=== PATIENT | male | born 1970 | race Caucasian/White ===

== ENCOUNTER 2020-09-21 18:52 | Inpatient (IN) | payer OTHER, SELFPAY ==
[2020-09-21 18:52] VITALS: BP 165/104; PULSE 74; RESP 20; TEMP 36.7; O2SAT 100; BMI 29.0
[2020-09-21 19:04] LABS: Add Urine Microscopic? NO
[2020-09-21 19:14] LABS: Bilirubin Urine Neg (Negative); Blood Urine Neg (Negative); Glucose Urine UA Norm (Normal); Ketones Urine Negative (Negative); Leukocyte Esterase Urine Negative (Negative); Nitrate Urine Negative (Negative); Protein Urine Neg (Negative); Urine Appearance Clear (CLEAR); Urine Color Straw (Yellow); Urobilinogen Urine Norm (Negative); pH Urine 6.5 (5-7)
[2020-09-21 19:18] LABS: Basophils # 0.1 10^3/uL (0.0-0.1); Basophils % 0.8 %; Eosinophils # 0.1 10^3/uL (0.0-0.8); Eosinophils % 1.9 %; Hematocrit 54.9 % (42.0-52.0); Hemoglobin 18.6 g/dL (11.7-16.6); Lymphocytes # 2.1 10^3/uL (0.8-4.8); Lymphocytes % 28.2 %; Mean Corpuscular HGB Conc 33.9 g/dL (30.0-36.0); Mean Corpuscular Hemoglobin 30.2 pg (28.0-34.0); Mean Corpuscular Volume 89.1 fL (80-94); Monocytes # 0.4 10^3/uL (0.2-0.9); Monocytes % 4.8 %; Neutrophils % 64.2 %; Nucleated Red Blood Cells % 0 %; Platelet Count 391 10^3/cmm (130-400); Red Blood Count 6.16 10^6/uL (4.1-5.3); Red Cell Distribution Width 12.7 % (12.1-15.1); White Blood Count 7.5 10^3/uL (4.0-10.0)
[2020-09-21 19:18] LABS: Amphetamines Screen Urine Negative (Negative); Barbiturates Screen Urine Negative (Negative); Benzodiazepines Screen Urine Negative (Negative); Cocaine Screen Urine Negative (Negative); Opiate Screen Urine Negative (Negative); PCP Screen Urine Negative (Negative); THC Screen Urine Negative (Negative)
[2020-09-21 19:38] LABS: Alanine Aminotransferase 33 U/L (0-41); Albumin Level 4.6 g/dL (3.5-5.2); Alcohol Level 271 mg/dL (0-10); Alkaline Phosphatase 105 IU/L (40-130); Anion Gap 15.2 (5-19); Aspartate Amino Transferase 27 U/L (0-40); Blood Urea Nitrogen 7 mg/dL (6-20); Calcium 8.9 mg/dL (8.5-10.5); Carbon Dioxide 30 mmol/L (22-29); Chloride 102 mmol/L (98-107); Globulin 3.8 g/dL (1.3-4.6); Glucose 94 mg/dL (65-115); Osmolality Calculated 294 mOsm/kg (285-295); Potassium 4.2 mmol/L (3.5-5.1); Sodium 143 mmol/L (136-145); Total Bilirubin 0.2 mg/dL (0.15-1.2); Total Protein 8.4 g/dL (6.6-8.7)
[2020-09-21 19:46] LABS: Acetaminophen < 5.0 ug/mL (10-30); Creatinine Clr Calc Pharmacy 180.9996; Salicylate < 0.3 mg/dL (3-10)
[2020-09-21] MEDS: nicotine 21 mg Patch 1 PATCH TRANSDERMA (20:28)
[2020-09-21] MEDS: LORazepam 2 mg Tablet PO (20:28)
[2020-09-21 20:30] VITALS: BP 183/88; PULSE 65; RESP 16; TEMP 37; O2SAT 65
--- NOTE | 2020-09-21 22:26 | ED_ITS ---
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 He is complaining of suicidal ideation. He is pretty tearful. He he did not tell me if he had any plan but it is obvious that he is distressed. He endorses alcohol use but denies any drug use. 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 complaint: suicidal ideation History of same: No Relieving factors: none Exacerbating factors: alcohol Context: recent alcohol abuse Review of Systems General: Reports: 10 or more systems reviewed and unremarkable except in HPI and below Const: Denies: fever(s), chills or body aches Eyes: Denies: change in vision or blurry vision ENMT: Denies: throat pain, enlarged tonsils, odynophagia, hoarseness, mouth pain or swelling of lips/tongue Card: Denies: palpitations, irregular heart rhythm, edema or swelling of feet/ankles Resp: Denies: dyspnea, productive cough or non-productive cough GI: Denies: abdominal pain, nausea or vomiting : Denies: flank pain, dysuria, urinary frequency, urinary urgency or urinary hesitancy Musc: Denies: neck pain, back pain or extremity swelling Skin/Breast: Denies: rash, pruritus or erythema Neuro: Denies: headache(s), numbness in extremities or weakness in extremities Endo: Denies: polyuria, polydipsia or tired all the time Physical Exam Const: COMMON NORMALS: no acute distress, average body habitus, patient oriented x3, no limitations, healthy appearing, alert and well nourished HENMT: COMMON NORMALS: normocephalic, atraumatic and moist oral mucous membranes HEAD & SCALP: normocephalic and atraumatic Neck/C-Spine: COMMON NORMALS: no meningeal signs and no JVD Resp: COMMON NORMALS: normal respiratory effort, No retractions, No use of accessory muscles, clear to auscultation bilaterally and percussion normal AUSCULTATION: clear to auscultation bilaterally PERCUSSION: percussion normal Cardio: COMMON NORMALS: no JVD, regular rate, regular rhythm, S1 normal heart sound present, S2 normal heart sound present, No gallops present (Cardio), No clicks present (Cardio), No murmurs present (Cardio), No rub (Cardio) and Peripheral pulses 2+ throughout RATE: regular rate RHYTHM: regular rhythm HEART SOUNDS: S1 normal heart sound present and S2 normal heart sound present PERIPHERAL PULSES: Peripheral pulses 2+ throughout GI: COMMON NORMALS: Normal to inspection, nondistended, normoactive bowel sounds present, Soft to palpation, non-tender, No hepatosplenomegaly present, no masses and no bruits PALPATION: Yes Soft to palpation and Yes No hepatosplenomegaly present Extremity: COMMON NORMALS: normal to inspection, full ROM, capillary refill normal, no calf tenderness and no pedal edema Neuro: COMMON NORMALS: patient oriented x3 SENSORIUM/ORIENTATION: Yes alert MENINGEAL SIGNS: Yes no meningeal signs Skin: COMMON NORMALS: no rashes or lesions noted, no wounds, turgor normal, no jaundice, no petechiae and no mottling GENERAL SKIN EXAM: no rashes or lesi ons noted and turgor normal MDM - Psych MDM Narrative: Medical decision making narrative: 50-year-old male who presents to the emergency department with suicidal ideation. He is medically cleared and admitted to the neuropsychiatric unit for further evaluation and management. He is voluntary and wants help. Medical Records: Attestation: I reviewed the patient's medical records. Lab Data: Attestation: I reviewed the patient's lab results. Labs: Lab Results 09/21/20 09/21/20 09/21/20 Range/Units 18:55 18:55 19:14 WBC 7.5 (4.0-10.0) 10^3/ uL RBC 6.16 H (4.1-5.3) 10^6/u L Hgb 18.6 H (11.7-16.6) g/dL Hct 54.9 H (42.0-52.0) % MCV 89.1 (80-94) fL MCH 30.2 (28.0-34.0) pg MCHC 33.9 (30.0-36.0) g/dL RDW 12.7 (12.1-15.1) % Plt Count 391 (130-400) 10^3/c mm MPV 9.0 (7.4-10.4) fL Neut % (Auto) 64.2 % Lymph % (Auto) 28.2 % Parmer % (Auto) 4.8 % Eos % (Auto) 1.9 % Baso % (Auto) 0.8 % Neut # (Auto) 4.80 (1.8-7.7) 10^3/u L Lymph # (Auto) 2.1 (0.8-4.8) 10^3/u L Parmer # (Auto) 0.4 (0.2-0.9) 10^3/u L Eos # (Auto) 0.1 (0.0-0.8) 10^3/u L Baso # (Auto) 0.1 (0.0-0.1) 10^3/u L Nucleated RBC % (a uto) 0 % Nucleated RBCs # 0.0 /100WBC Sodium (136-145) mmol/L Potassium (3.5-5.1) mmol/L Chloride (98-107) mmol/L Carbon Dioxide (22-29) mmol/L Anion Gap (5-19) BUN (6-20) mg/dL Creatinine (0.7-1.2) mg/dL GFR Calculation (90-130) mL/min Glucose (65-115) mg/dL Calculated Osmolal ity (285-295) mOsm/k g Calcium (8.5-10.5) mg/dL Total Bilirubin (0.15-1.2) mg/dL AST (0-40) U/L ALT (0-41) U/L Alkaline Phosphata se (40-130) IU/L Total Protein (6.6-8.7) g/dL Albumin (3.5-5.2) g/dL Globulin (1.3-4.6) g/dL Urine Color Straw (Yellow) Urine Appearance Clear (CLEAR) Urine pH 6.5 (5-7) Ur Specific Gravit y 1.000 L (1.005-1.030) Urine Protein Neg (Negative) Urine Glucose (UA) Norm (Normal) Urine Ketones Negative (Negative) Urine Blood Neg (Negative) Urine Nitrate Negative (Negative) Urine Bilirubin Neg (Negative) Urine Urobilinogen Norm (Negative) mg/dL Ur Leukocyte Zahraa ase Negative (Negative) Salicylates (3-10) mg/dL Urine Opiates Scre en Negative (Negative) ng/mL Acetaminophen (10-30) ug/mL Ur Barbiturates Sc reen Negative (Negative) ng/mL Ur Phencyclidine S crn Negative (Negative) ng/mL Ur Amphetamines Sc reen Negative (Negative) ng/mL U Benzodiazepines Scrn Negative (Negative) ng/mL Urine Cocaine Scre en Negative (Negative) ng/mL U Marijuana (THC) Screen Negative (Negative) ng/mL Ethyl Alcohol (0-10) mg/dL 09/21/20 Range/Units 19:14 WBC (4.0-10.0) 10^3/ uL RBC (4.1-5.3) 10^6/u L Hgb (11.7-16.6) g/dL Hct (42.0-52.0) % MCV (80-94) fL MCH (28.0-34.0) pg MCHC (30.0-36.0) g/dL RDW (12.1-15.1) % Plt Count (130-400) 10^3/c mm MPV (7.4-10.4) fL Neut % (Auto) % Lymph % (Auto) % Parmer % (Auto) % Eos % (Auto) % Baso % (Auto) % Neut # (Auto) (1.8-7.7) 10^3/u L Lymph # (Auto) (0.8-4.8) 10^3/u L Parmer # (Auto) (0.2-0.9) 10^3/u L Eos # (Auto) (0.0-0.8) 10^3/u L Baso # (Auto) (0.0-0.1) 10^3/u L Nucleated RBC % (a uto) % Nucleated RBCs # /100WBC Sodium 143 (136-145) mmol/L Potassium 4.2 (3.5-5.1) mmol/L Chloride 102 (98-107) mmol/L Carbon Dioxide 30 H (22-29) mmol/L Anion Gap 15.2 (5-19) BUN 7 (6-20) mg/dL Creatinine 0.6 L (0.7-1.2) mg/dL GFR Calculation 142.0 H (90-130) mL/min Glucose 94 (65-115) mg/dL Calculated Osmolal ity 294 (285-295) mOsm/k g Calcium 8.9 (8.5-10.5) mg/dL Total Bilirubin 0.2 (0.15-1.2) mg/dL AST 27 (0-40) U/L ALT 33 (0-41) U/L Alkaline Phosphata se 105 (40-130) IU/L Total Protein 8.4 (6.6-8.7) g/dL Albumin 4.6 (3.5-5.2) g/dL Globulin 3.8 (1.3-4.6) g/dL Urine Color (Yellow) Urine Appearance (CLEAR) Urine pH (5-7) Ur Specific Gravit y (1.005-1.030) Urine Protein (Negative) Urine Glucose (UA) (Normal) Urine Ketones (Negative) Urine Blood (Negative) Urine Nitrate (Negative) Urine Bilirubin (Negative) Urine Urobilinogen (Negative) mg/dL Ur Leukocyte Zahraa ase (Negative) Salicylates < 0.3 L (3-10) mg/dL Urine Opiates Scre en (Negative) ng/mL Acetaminophen < 5.0 L (10-30) ug/mL Ur Barbiturates Sc reen (Negative) ng/mL Ur Phencyclidine S crn (Negative) ng/mL Ur Amphetamines Sc reen (Negative) ng/mL U Benzodiazepines Scrn (Negative) ng/mL Urine Cocaine Scre en (Negative) ng/mL U Marijuana (THC) Screen (Negative) ng/mL Ethyl Alcohol 271 H (0-10) mg/dL Discharge Plan Discharge Patient Disposition: Admitted As Inpatient Admit Provider: Pete De Leon Clinical Impression: Suicidal ideation Condition: Stable Coding Level of Care Code ED Ski Tow Operator for Jadeg Fwd Exam Comprehensive
[2020-09-21 22:59] LABS: Alcohol Level 178 mg/dL (0-10)
[2020-09-22] MEDS: LORazepam 2 mg Tablet PO (03:19)
[2020-09-22 06:00] VITALS: BP 186/112; PULSE 76; RESP 19; TEMP 36.7; O2SAT 97
[2020-09-22] MEDS: thiamine 100 mg Tablet PO (08:38)
[2020-09-22] MEDS: multivitamin therapeutic Tablet 1 TAB PO (08:38)
[2020-09-22] MEDS: folic acid 1 mg Tablet PO (08:38)
[2020-09-22] MEDS: nicotine 2 mg Gum BUCCAL (12:19)
[2020-09-22 14:00] VITALS: BP 166/108; PULSE 67; RESP 18; TEMP 36.1; O2SAT 93
--- NOTE | 2020-09-22 15:11 | P.HP_ITS ---
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 He is complaining of suicidal ideation. He is pretty tearful. He he did not tell me if he had any plan but it is obvious that he is distressed. He endorses alcohol use but denies any drug use. 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 complaint: suicidal ideation History of same: No Relieving factors: none Exacerbating factors: alcohol Context: recent alcohol abuse. He was admitted to the neuropsychiatric unit for definitive treatment of those issues. He presents today reporting that this is his first psychiatric hospitalization. He reports he did get treatment as an adolescent for depression. He reports he has had medications [facility] He denies any histories of suicide attempts he denies any significant alcohol withdrawal symptoms. Today, he has alcohol often daily, he denies marijuana use he denies cocaine methamphetamine or any other illicit drug use. He has never been to a rehab, and he has had a DUI. He reports that he came into the emergency room because he was feeling cold and despondent his drinking had increased. He retired with 20 years of service in the [employer] he reports he recently bought a 17 acre cabin in [place]. He is not interested in taking any psychiatric medication outside of the trazodone and at this point would prefer being discharged as soon as possible and was even resistant to make it with the [facility] which already is aware of him because they have called us. Psychiatric history: As above. Substance abuse history: As above. Family history: He reports some alcohol and drug addiction on his father side but denies any other mental health or addiction issues on either side of his family denies any knowledge of suicide attempts or completions. Developmental history: He denies any issues with his mom's with him or and delivery. He learned to walk and talk and met his developmental milestones on time. He denied having any speech therapy, learning support, emotional support or special education classes once he went off to school. Psychosocial history: He reports his parents were together when he was born and that he is the only product of that union. Neither of his parents had any children otherwise. He reports his childhood was only denied the emotional, physical or sexual abuse. He graduated from high school and the only additional training he had was in the [employer]. He is a heterosexual and his longest relationship 6 to 7 years. He has been 1 time and once, he has 3 children all daughters ages 19- 26, he was in the [employer] for 20 years, and he endorses having a Zoroastrian jesu but not necessarily practicing intensely. His longest employment was the 20 years in the and he currently lives alone in the cabin above described. Legal history: He reports that he has been in group home a few times a longest time was 19 weeks. Medical history: He denies any significant issues. Meds NPU Home Medications Medication Instructions Recorded Confirmed Last Taken Type trazodone 200 mg PO BEDTIME 09/22/20 09/22/20 09/21/20 History Allergies Allergy/AdvReac Type Severity Reaction Status Date / Time procaine [From Novocain] Allergy Unknown Verified 09/21/20 20:31 Mental Status Exam MSE Comments: This is an overweight white male with hospital scrubs on with adequate grooming and eye contact. No abnormal movements psychomotor retardation that is resolving. Cooperative with exam in no acute distress. Speech was normal rate and volume. Mood described as good affect congruent. Thought process organized. Thought content: Patient denied any suicidal or homicidal ideation, there were no delusions reported or noted, he denied any auditory or visual hallucination. Attention and concentration were intact and memory appeared reliable but none were formally tested. He is alert and oriented x3. Insight and judgment appear fair impulse control appears limited. Vitals/I&O/Wt Last Vital Signs Temp 97.0 F L 09/22/20 20:43 Pulse 66 09/22/20 20:43 Resp 18 09/22/20 20:43 BP 155/81 09/22/20 20:43 Pulse Ox 96 09/22/20 20:43 Weight last 48 hrs Weight 99.79 kg Data NPU : 09/21/20 19:14 09/21/20 19:14 A&P Assessment and plan (1) PTSD (post-traumatic stress disorder): Status: Acute (2) Alcohol use: Status: Acute (3) Alcohol intoxication: Status: Acute (4) Suicidal ideation: Status: Acute Additional A&P Information This is a 50-year-old white male with a long history of PTSD, active addiction and presenting to the ED with suicidal ideation who presents reporting that he is doing fine now and not interested in any treatment. 1. Continue current medication. 2. Continue every 15 minute checks for safety. 3. Encourage individual, group and milieu therapies. 4. Encourage sober living treatment after discharge at the highest level of care to which she is willing to commit. 5. [facility] 6. We will monitor overnight and likely discharge tomorrow if he is having the same position on treatment. He is a voluntary patient. Involuntary Hold Information 96 Hour Hold: 96 Hour Involuntary Admission: No Attestations NPU Medical Necessity Statement*: Inpatient hospitalization is medically necessary and the clinically appropriate intervention at this time. We will monitor medications and make changes as indicated. We will likely monitor for another 24 hours and if he is striking the same tone without any clear concerns we will discharge. Coding Level of Care Code Acute Book Sewing Machine Operator for Jhoana Buckley Diagnoses PTSD (post-traumatic stress disorder) F43.10 Alcohol use Z72.89 Alcohol intoxication F10.929 Suicidal ideation R45.851
[2020-09-22 16:25] VITALS: BP 166/108; PULSE 67; RESP 18; TEMP 36.1; O2SAT 93
[2020-09-22 20:43] VITALS: BP 155/81; PULSE 66; RESP 18; TEMP 36.1; O2SAT 96
--- NOTE | 2020-09-22 22:10 | PC.NURSE ---
PM ASSESSMENT V/S ARE WNL WITH B/P EXCEPTION OF 155/81. HEART/LUNG SOUNDS ARE WNL . PT DENIES PAIN, DENIES SI/HI, DENIES AH/VH, PT WANTS TO REST.
[2020-09-23] MEDS: trazodone 50 mg Tablet PO (01:49)
[2020-09-23] MEDS: OLANZapine 5 mg ODT PO (01:49)
--- NOTE | 2020-09-23 01:52 | PC.NURSE ---
zyprexa zydis/trazodone 5mg zyprexa zydis given for intrusive racing thoughts Trazodone 50mg po given for insomnia will continue to monitor pt
--- NOTE | 2020-09-23 01:54 | PC.NURSE ---
Ciwa 2- no medication given for withdrawl at this time
--- NOTE | 2020-09-23 02:56 | PC.NURSE ---
PRN followup pt sleeping in his room at this time. no signs of distress noted. patient is calm and quiet, eyes closed, respiration normal.
[2020-09-23 06:00] VITALS: BP 141/83; PULSE 71; RESP 18; TEMP 36.7; O2SAT 95
[2020-09-23] MEDS: multivitamin therapeutic Tablet 1 TAB PO (08:46)
[2020-09-23] MEDS: folic acid 1 mg Tablet PO (08:46)
[2020-09-23] MEDS: thiamine 100 mg Tablet PO (08:46)
[2020-09-23 10:27] VITALS: BP 141/83; PULSE 71; RESP 18; TEMP 36.7; O2SAT 95
[2020-09-23] MEDS: nicotine 21 mg Patch 1 PATCH TRANSDERMA (10:51)
--- NOTE | 2020-09-23 11:20 | P.DS_ITS ---
Diagnoses at Discharge Discharge Diagnosis (1) PTSD (post-traumatic stress disorder): Status: Acute (2) Alcohol use: Status: Acute (3) Alcohol intoxication: Status: Acute (4) Suicidal ideation: Status: Resolved Reason for Visit Reason for Visit: SI/ ETOH Brief History: History of Present Illness Deshaun Machuca is a 50 year old male who presented to the emergency department with the following report: Chief Complaint: Psychiatric Symptoms Stated Complaint: SI/ ETOH Time Seen by Provider: 09/21/20 18:54 Source: patient Mode of arrival: ambulatory Limitations: no limitations History of Present Illness: HPI Narrative: 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 He is complaining of suicidal ideation. He is pretty tearful. He he did not tell me if he had any plan but it is obvious that he is distressed. He endorses alcohol use but denies any drug use. 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 MD complaint: suicidal ideation History of same: No Relieving factors: none Exacerbating factors: alcohol Context: recent alcohol abuse. He was admitted to the neuropsychiatric unit for definitive treatment of those issues. He presents today reporting that this is his first psychiatric hospitalization. He reports he did get treatment as an adolescent for depression. He reports he has had medications specifically [facility] He denies any histories of suicide attempts he denies any significant alcohol withdrawal symptoms. Today, he has alcohol often daily, he denies marijuana use he denies cocaine methamphetamine or any other illicit drug use. He has never been to a rehab, and he has had a DUI. He reports that he came into the emergency room because he was feeling cold and despondent his drinking had increased. He retired with 20 years of service in the [employer] he reports he recently bought a 17 [address] cabin in [place]. He is not interested in taking any psychiatric medication outside of the trazodone and at this point would prefer being discharged as soon as possible and was even resistant to make it with the [facility] which already is aware of him because they have called us. Psychiatric history: As above. Substance abuse history: As above. Family history: He reports some alcohol and drug addiction on his father side but denies any other mental health or addiction issues on either side of his family denies any knowledge of suicide attempts or completions. Developmental history: He denies any issues with his mom's with him or and delivery. He learned to walk and talk and met his developmental milestones on time. He denied having any speech therapy, learning support, emotional support or special education classes once he went off to school. Psychosocial history: He reports his parents were together when he was born and that he is the only product of that union. Neither of his parents had any children otherwise. He reports his childhood was only denied the emotional, physical or sexual abuse. He graduated from high school and the only additional training he had was in the [employer]. He is a heterosexual and his longest relationship 6 to 7 years. He has been 1 time and once, he has 3 children all daughters ages 19- 26, he was in the [employer] for 20 years, and he endorses having a Nondenominational jesu but not necessarily practicing intensely. His longest employment was the 20 years in the and he currently lives alone in the cabin above described. Legal history: He reports that he has been in group home a few times a longest time was 19 weeks. Medical history: He denies any significant issues. Hospital Course Hospital Course Deshaun presented to the emergency department with depression, alcohol use and suicidal ideation, so he was admitted to the Neuropsychiatric unit for definitive treatment of those issues. He slowly acclimated to the individual, group and milieu therapies. He was not interested in additional treatment wants his intoxication/withdrawal from alcohol was resolved. He was monitored for 24 hours additionally to ensure safety. He was able to contract for safety prior to discharge.During the hospitalization, patient had routine laboratory studies which were within normal limits except for few outliers. Additionally there was a general medical evaluation which was also within normal limits and revealed no new acute processes. Discharge Summary: At the time of discharge, he was absent lethality and psychosis. Mood and anxiety were well managed. Patient endorsed a plan to avoid all drugs of abuse and consider the aftercare recommendations of the treatment team. Patient was evaluated and deemed to be absent credible lethality, and was not interested in additional care so had achieved the maximum benefit from an inpatient hospitalization, so was discharged. Involuntary Hold Information 96 Hour Hold: 96 Hour Involuntary Admission: No Mental Status Exam MSE Comments: This is an overweight white male with hospital scrubs on with adequate grooming and eye contact. No abnormal movements except psychomotor retardation that is resolving. Cooperative with exam in no acute distress. Speech was normal rate and volume. Mood described as good, affect congruent. Thought process organized. Thought content: Patient denied any suicidal or homicidal ideation, there were no delusions reported or noted, he denied any auditory or visual hallucination. Attention and concentration were intact and memory appeared reliable but none were formally tested. He is alert and oriented x3. Insight and judgment appear fair impulse control appears limited. Discharge Data Vitals: Last Vital Signs Temp 98.1 F 09/23/20 10:27 Pulse 71 09/23/20 10:27 Resp 18 09/23/20 10:27 BP 141/83 09/23/20 10:27 Pulse Ox 95 09/23/20 10:27 Discharge Plan Discharge Patient Disposition: Home Condition: Stable Prescriptions: New Vitamin B-1 (mononitrate) 100 mg Tablet 100 mg PO DAILY 30 Days Qty: 30 RF: 1 Continued trazodone 100 mg Tablet 200 mg PO BEDTIME 30 Days Qty: 60 RF: 1 No Action aspirin 81 mg tablet,chewable 81 mg PO DAILY Qty: 30 RF: 0 Discharge Orders: Discharge Order (Routine); Ordered 09/23/20 Ordered By: Pete De Leon Referrals: [facility] ([place] [Other] [facility] ([place] [Other] [facility] [Outside] (Resource for outpatient mental health services) [facility] [Outside] (Resource for inpatient or outpatient substance abuse treatment) Discharge Diet: Regular Discharge Activity: Resume usual activity Patient Instructions: Trazodone (By mouth) Discharge Attestations NPU Time Spent in Discharge Care*: less than 30 min Specific Discharge Activities: Specific discharge activities: educating patient, discussing with insurance case manager/social workers/dc planners, documenting/other paperwork and evaluating patient/reviewing data Coding Level of Care Code Acute Inspector Assembly for [facility] Fwd Diagnoses PTSD (post-traumatic stress disorder) F43.10 Alcohol use Z72.89 Alcohol intoxication F10.929 Suicidal ideation R45.851
== END 2020-09-23 12:12 | disposition home or self-care (01) | DRG 881 ==
LOC: ER 20:06 → NP 20:09
PROVIDERS: Admitting Provider Psychiatry & Neurology Psychiatry; Emergency Provider Family Medicine; Visit Provider Psychiatry & Neurology Psychiatry
DX: F32.9 Major depressive disorder, single episode, unspecified (principal); R45.851 Suicidal ideations; F10.229 Alcohol dependence with intoxication, unspecified; F43.10 Post-traumatic stress disorder, unspecified; Z81.1 Family history of alcohol abuse and dependence
CPT/HCPCS: 12345; 36415; 80053; 80306; 80307; 81003; 85025; 96372; 99284; J3411

== ENCOUNTER 2020-10-02 19:37 | Emergency (ER) | payer OTHER, SELFPAY ==
[2020-10-02 19:40] VITALS: BP 159/93; PULSE 82; RESP 18; TEMP 36.8; O2SAT 98; BMI 32.3
--- NOTE | 2020-10-03 00:20 | CTR_ITS ---
PROCEDURE INFORMATION: Exam: CT Head Without Contrast Exam date and time: 10/03/2020 12:21 AM Age: 50 years old Clinical indication: Speech disturbance; Aphasia; Patient HX: Transient asphasia; Additional info: Word difficulties recent onset TECHNIQUE: Imaging protocol: Computed tomography of the head without contrast. Radiation optimization: All CT scans at this facility use at least one of these dose optimization techniques: automated exposure control; mA and/or kV adjustment per patient size (includes targeted exams where dose is matched to clinical indication); or iterative reconstruction. COMPARISON: No relevant prior studies available. RADIATION DOSE METRICS: Total DLP (mGy-cm): 888.4 FINDINGS: Brain: There is subtle hypoattenuation seen within the corpus callosum on the left posteriorly, findings that may represent an acute infarction. Possibilities including demyelinating disease is cannot be excluded. Follow-up evaluation with pre and post gadolinium MRI imaging is suggested. Cerebral ventricles: No ventriculomegaly. Bones/joints: Unremarkable. No acute fracture. Paranasal sinuses: Visualized sinuses are unremarkable. No fluid levels. Mastoid air cells: Visualized mastoid air cells are well aerated. Soft tissues: Unremarkable. CT/CT head wo con* [id number] IMPRESSION: There is focal hypoattenuation seen within the corpus callosum posteriorly on the left, findings that could represent acute infarction although other possibilities including demyelinating disease is cannot be excluded. Further evaluation with pre and post gadolinium MRI imaging and diffusion-weighted imaging is suggested. Radiation Dose CTDIVOL = (mGy): DLP = 888.4 (mGy-cm)
--- NOTE | 2020-10-03 00:20 | ED_ITS ---
HPI - General Adult General: Chief complaint: General Medical Stated complaint: speech issues Time Seen by Provider: 10/03/20 00:14 History of Present Illness: HPI narrative: Patient went on a alcohol blakely for about 2 weeks drinking about 1/5 of liquor every 3 days. Was seen here in the hospital. Patient's quit drinking here a few days ago had 1 beer today. But he said the last few days he has had problems with word finding words getting words out and his head did not feel right. Thinks he may also have sleep apnea. Intoxicated friend said he had apneic spells lasting from 30 to 45 seconds. MD complaint: Word finding difficulties Onset (ago): week(s) Associated symptoms: Deny chest pain, dyspnea, headache(s), nausea, rash or vomi ting Review of Systems Const: Denies: fever(s), chills or body aches Eyes: Denies: change in vision or blurry vision ENMT: Denies: throat pain or nasal congestion Card: Denies: chest pain or dyspnea on exertion Resp: Denies: dyspnea, productive cough or non-productive cough GI: Denies: abdominal pain, nausea or vomiting : Denies: difficulty urinating Musc: Denies: extremity pain Skin/Breast: Denies: rash Neuro: Reports: other (Says he said a hard time finding words. Stuttering a lot.); Denies: headache(s) Psych: Reports: other (Recent alcohol intoxication stay intoxicated for about 2 weeks. Seen here ); Denies: anxiety or depression Oscar/Lymph: Denies: easy bruising Physical Exam Const: COMMON NORMALS: no acute distress, average body habitus and patient oriented x3 HENMT: COMMON NORMALS: normocephalic HEAD & SCALP: normal to inspection and normocephalic FACE & SINUS: normal facial exam Eye: COMMON NORMALS: conjunctivae normal GENERAL EYE: appearance normal, both eyes and all related structures CONJUNCTIVA: Yes conjunctivae normal Neck/C-Spine: COMMON NORMALS: no JVD Chest: COMMONS NORMALS: normal inspection of the chest Resp: COMMON NORMALS: normal respiratory effort and clear to auscultation bilaterally AUSCULTATION: clear to auscultation bilaterally Cardio: COMMON NORMALS: no JVD, regular rate and regular rhythm RATE: regular rate RHYTHM: regular rhythm GI: COMMON NORMALS: Normal to inspection, nondistended, normoactive bowel sounds present Extremity: COMMON NORMALS: normal to inspection and full ROM Neuro: COMMON NORMALS: patient oriented x3, moves all extremities, no focal motor deficits and no sensory deficits noted Course Vital Signs: Vital signs: Vital Signs Temperature 98.2 F 10/02/20 19:40 Pulse Rate 82 10/02/20 19:40 Respiratory Rate 18 10/02/20 19:40 Blood Pressure 159/93 10/02/20 19:40 Pulse Oximetry 98 10/02/20 19:40 MDM - General Adult MDM Narrative: Medical decision making narrative: I spoke with Dr. Albert shared radiology results with him he recommend to call the neurologist. I spoke with Dr. Chinchilla and Dr. Chinchilla recommended following through with what the radiologist said and and an MRI cervical and intracranial and have patient with a 2-week follow-up at neurology with her. Instructed the patient should be on a baby aspirin daily also. Patient can return to the ER if worsening symptoms patient was advised away from alcohol.. Discharge Plan Discharge Prescriptions: No Action Vitamin B-1 (mononitrate) 100 mg Tablet 100 mg PO DAILY 30 Days Qty: 30 RF: 1 trazodone 100 mg Tablet 200 mg PO BEDTIME 30 Days Qty: 60 RF: 1 Coding Level of Care Code ED Nailer Machine for Jadeg Fwd Exam Comprehensive
[2020-10-03 01:42] VITALS: PULSE 72; O2SAT 97
--- NOTE | 2020-10-03 09:59 | DCPLANNER ---
manager of training had message to schedule a follow up appointment for patient with Dr. Chinchilla and was left an outpatient order for an MRI/MRA. manager of training called the office of Dr. Chinchilla, to speak with Akash Agarwal, international coordinator. manager of training was unable to speak with Akash, a voicemail was left with patients information, that patient needed a follow up appointment. manager of training faxed outpatient order to centralized scheduling. Patient has [facility] insurance, case picker emailed patients information to November, with [facility], for the authorization process to be started.
--- NOTE | 2020-10-14 08:01 | DCPLANNER ---
Patient has a follow up appointment scheduled for Tuesday, October 27, 2020 at 10:[address] Chinchilla. Clinic will call patient with appointment information.
--- NOTE | 2020-10-29 15:04 | DCPLANNER ---
Patient had a follow up appointment scheduled for 10.27.20 with - patient did not attend appointment. Patient has an MRI / MRA pending with insurance before it can be scheduled.
== END 2020-10-03 01:42 | disposition home or self-care (01) ==
PROVIDERS: Emergency Provider Nurse Practitioner Family
DX: R41.0 Disorientation, unspecified (principal)
CPT/HCPCS: 70450; 99283

== ENCOUNTER 2020-12-25 18:39 | Emergency (ER) | payer OTHER, SELFPAY ==
[2020-12-25 18:54] VITALS: BP 192/105; PULSE 87; RESP 18; O2SAT 93; BMI 30.9
[2020-12-25 20:13] LABS: Basophils # 0.1 10^3/uL (0.0-0.1); Eosinophils # 0.1 10^3/uL (0.0-0.8); Hematocrit 51.2 % (42.0-52.0); Hemoglobin 17.6 g/dL (11.7-16.6); Lymphocytes # 2.3 10^3/uL (0.8-4.8); Lymphocytes % 33.2 %; Mean Corpuscular HGB Conc 34.4 g/dL (30.0-36.0); Mean Corpuscular Hemoglobin 29.9 pg (28.0-34.0); Mean Corpuscular Volume 87.1 fL (80-94); Mean Platelet Volume 9.2 fL (7.4-10.4); Monocytes # 0.8 10^3/uL (0.2-0.9); Monocytes % 11.5 %; Neutrophils # 3.69 10^3/uL (1.8-7.7); Neutrophils % 53.2 %; Nucleated Red Blood Cells % 0 %; Platelet Count 264 10^3/cmm (130-400); Red Blood Count 5.88 10^6/uL (4.1-5.3); Red Cell Distribution Width 13.2 % (12.1-15.1)
[2020-12-25 20:21] LABS: Alanine Aminotransferase 37 U/L (0-41); Alcohol Level 215 mg/dL (0-10); Alkaline Phosphatase 100 IU/L (40-130); Anion Gap 23.4 (5-19); Aspartate Amino Transferase 39 U/L (0-40); Blood Urea Nitrogen 10 mg/dL (6-20); Calcium 8.6 mg/dL (8.5-10.5); Carbon Dioxide 22 mmol/L (22-29); Chloride 93 mmol/L (98-107); Globulin 3.7 g/dL (1.3-4.6); Glomerular Filtration Rate 118.9 mL/min (90-130); Glucose 84 mg/dL (65-115); Osmolality Calculated 278 mOsm/kg (285-295); Potassium 3.4 mmol/L (3.5-5.1); Sodium 135 mmol/L (136-145); Total Bilirubin 0.5 mg/dL (0.15-1.2); Total Protein 8.7 g/dL (6.6-8.7)
[2020-12-25 20:22] LABS: Acetaminophen < 5.0 ug/mL (10-30); Salicylate < 0.3 mg/dL (3-10)
[2020-12-25 21:07] VITALS: BP 176/100; PULSE 87; RESP 18; O2SAT 97
--- NOTE | 2020-12-25 21:13 | ECG_ITS ---
[facility] Test Date: 2020-12-25 Pat Name: Deshaun Machuca Department: Room: Gender: Male Portfolio Director: : 1970 Requested By: Leigh Mckeon Order Number: [id number] Lara MD: Steve Ordonez M.D. Measurements Intervals [place] Rate: 74 P: 29 GA: 189 QRS: 52 QRSD: 106 T: 54 QT: 410 QTc: 456 Interpretive Statements SINUS RHYTHM INCOMPLETE RIGHT BUNDLE BRANCH BLOCK [90+ ms QRS DURATION, TERMINAL R IN V1/V2, 40+ ms S IN I/aVL/V4/V5/V6] SEPTAL MYOCARDIAL INFARCTION , PROBABLY OLD [40+ ms Q WAVE IN V1/V2] No previous ECG available for comparison Electronically Signed On 12-26-2020 21:55:21 CDT by Steve Ordonez M.D. [id number]
[2020-12-25] MEDS: LORazepam 2 mg/mL INJ 1 mL IVP (21:30)
[2020-12-25 21:31] VITALS: PULSE 80; RESP 16; O2SAT 97
[2020-12-25 21:46] LABS: Troponin(5th) Baseline 8 ng/L (0-15)
--- NOTE | 2020-12-25 21:48 | PC.NURSE ---
patient ambulated to bathroom with clean catch urine kit.
[2020-12-25 22:04] LABS: Troponin 5 2HR 9.13 ng/L (0-15); Troponin 5 2HR Delta 1.13 ABS# (0-10)
[2020-12-25 22:13] LABS: Amphetamines Screen Urine Negative (Negative); Barbiturates Screen Urine Negative (Negative); Benzodiazepines Screen Urine Negative (Negative); Cocaine Screen Urine Negative (Negative); Opiate Screen Urine Negative (Negative); PCP Screen Urine Negative (Negative); THC Screen Urine Negative (Negative)
--- NOTE | 2020-12-25 22:18 | ED_ITS ---
HPI - Alcohol General: Chief Complaint: Alcohol Stated Complaint: needs detox from alcohol Time Seen by Provider: 12/25/20 20:50 Source: patient Mode of arrival: ambulatory Limitations: no limitations History of Present Illness: HPI narrative: 50-year-old male who is a chronic alcoholic states that he is having some anxiety today and states he just been drinking too much and would like detox. States that he has been drinking today as well. He denies any suicidal homicidal thoughts. He has no other complaints at this time. Denies any worsening proving factors. Associated symptoms: Deny abdominal pain, depression, nausea or vomiting Review of Systems Const: Denies: fever(s), chills, body aches or change in appetite Eyes: Denies: blurry vision or eye discomfort ENMT: Denies: throat pain or dental pain Card: Reports: chest pain Resp: Denies: dyspnea GI: Denies: abdominal pain, nausea, vomiting or diarrhea : Denies: dysuria Musc: Denies: neck pain or back pain Skin/Breast: Denies: rash Neuro: Denies: headache(s) Psych: Denies: depression Oscar/Lymph: Denies: easy bruising All/Imm: Denies: urticaria Physical Exam Const: COMMON NORMALS: no acute distress, patient oriented x3 and healthy appearing HENMT: COMMON NORMALS: normocephalic and atraumatic HEAD & SCALP: normocephalic and atraumatic Eye: COMMON NORMALS: Equal, round and reactive pupils present and EOMs intact bilaterally PUPIL: Yes Equal, round and reactive pupils present Neck/C-Spine: COMMON NORMALS: full ROM and supple Chest: COMMONS NORMALS: normal inspection of the chest and normal palpation of entire chest wall Resp: COMMON NORMALS: normal respiratory effort, No retractions, No use of accessory muscles and clear to auscultation bilaterally AUSCULTATION: clear to auscultation bilaterally Cardio: COMMON NORMALS: regular rate, regular rhythm and No murmurs present (Cardio) RATE: regular rate RHYTHM: regular rhythm GI: COMMON NORMALS: Normal to inspection, nondistended, normoactive bowel sounds present, Soft to palpation, non-tender and no masses PALPATION: Yes Soft to palpation Extremity: COMMON NORMALS: normal to inspection and full ROM Neuro: COMMON NORMALS: patient oriented x3, moves all extremities and no focal motor deficits Psych: COMMON NORMALS: mental status grossly normal, Normal thought process present and cooperative THOUGHT PROCESS: Normal thought process present Skin: COMMON NORMALS: no rashes or lesions noted and no wounds GENERAL SKIN EXAM: no rashes or lesions noted Course Vital Signs: Vital signs: Vital Signs Pulse Rate 87 12/25/20 22:50 Respiratory Rate 15 12/25/20 22:50 Blood Pressure 166/92 12/25/20 22:50 Pulse Oximetry 96 12/25/20 22:50 MDM - Alcohol MDM Narrative: Medical decision making narrative: Patient presents with alcohol abuse. We will try to get him set up with [facility]. Patient prescribed Librium. Informed him if he is going to drink he does not need to take the Librium and it could be dangerous. He is not suicidal h omicidal. Patient is stable for discharge and return if worsening. Lab Data: Labs: Lab Results 12/25/20 12/25/20 12/25/20 Range/Units 18:15 18:15 18:15 WBC 7.0 (4.0-10.0) 10^3/ uL RBC 5.88 H (4.1-5.3) 10^6/u L Hgb 17.6 H (11.7-16.6) g/dL Hct 51.2 (42.0-52.0) % MCV 87.1 (80-94) fL MCH 29.9 (28.0-34.0) pg MCHC 34.4 (30.0-36.0) g/dL RDW 13.2 (12.1-15.1) % Plt Count 264 (130-400) 10^3/c mm MPV 9.2 (7.4-10.4) fL Neut % (Auto) 53.2 % Lymph % (Auto) 33.2 % [place] % (Auto) 11.5 % Eos % (Auto) 1.0 % Baso % (Auto) 1.0 % Neut # (Auto) 3.69 (1.8-7.7) 10^3/u L Lymph # (Auto) 2.3 (0.8-4.8) 10^3/u L [place] # (Auto) 0.8 (0.2-0.9) 10^3/u L Eos # (Auto) 0.1 (0.0-0.8) 10^3/u L Baso # (Auto) 0.1 (0.0-0.1) 10^3/u L Nucleated RBC % (a uto) 0 % Nucleated RBCs # 0.0 /100WBC Sodium 135 L (136-145) mmol/L Potassium 3.4 L (3.5-5.1) mmol/L Chloride 93 L (98-107) mmol/L Carbon Dioxide 22 (22-29) mmol/L Anion Gap 23.4 H (5-19) BUN 10 (6-20) mg/dL Creatinine 0.7 (0.7-1.2) mg/dL GFR Calculation 118.9 (90-130) mL/min Glucose 84 (65-115) mg/dL Calculated Osmolal ity 278 L (285-295) mOsm/k g Calcium 8.6 (8.5-10.5) mg/dL Total Bilirubin 0.5 (0.15-1.2) mg/dL AST 39 (0-40) U/L ALT 37 (0-41) U/L Alkaline Phosphata se 100 (40-130) IU/L Troponin T Baselin e 8 (0-15) ng/L Troponin T 120 Min marilyn (0-15) ng/L Delta Troponin T (0-10) ABS# Total Protein 8.7 (6.6-8.7) g/dL Albumin 5.0 (3.5-5.2) g/dL Globulin 3.7 (1.3-4.6) g/dL Salicylates < 0.3 L (3-10) mg/dL Urine Opiates Scre en (Negative) ng/mL Acetaminophen < 5.0 L (10-30) ug/mL Ur Barbiturates Sc reen (Negative) ng/mL Ur Phencyclidine S crn (Negative) ng/mL Ur Amphetamines Sc reen (Negative) ng/mL U Benzodiazepines Scrn (Negative) ng/mL Urine Cocaine Scre en (Negative) ng/mL U Marijuana (THC) Screen (Negative) ng/mL Ethyl Alcohol 215 H (0-10) mg/dL 12/25/20 12/25/20 Range/Units 21:30 21:52 WBC (4.0-10.0) 10^3/ uL RBC (4.1-5.3) 10^6/u L Hgb (11.7-16.6) g/dL Hct (42.0-52.0) % MCV (80-94) fL MCH (28.0-34.0) pg MCHC (30.0-36.0) g/dL RDW (12.1-15.1) % Plt Count (130-400) 10^3/c mm MPV (7.4-10.4) fL Neut % (Auto) % Lymph % (Auto) % [place] % (Auto) % Eos % (Auto) % Baso % (Auto) % Neut # (Auto) (1.8-7.7) 10^3/u L Lymph # (Auto) (0.8-4.8) 10^3/u L [place] # (Auto) (0.2-0.9) 10^3/u L Eos # (Auto) (0.0-0.8) 10^3/u L Baso # (Auto) (0.0-0.1) 10^3/u L Nucleated RBC % (a uto) % Nucleated RBCs # /100WBC Sodium (136-145) mmol/L Potassium (3.5-5.1) mmol/L Chloride (98-107) mmol/L Carbon Dioxide (22-29) mmol/L Anion Gap (5-19) BUN (6-20) mg/dL Creatinine (0.7-1.2) mg/dL GFR Calculation (90-130) mL/min Glucose (65-115) mg/dL Calculated Osmolal ity (285-295) mOsm/k g Calcium (8.5-10.5) mg/dL Total Bilirubin (0.15-1.2) mg/dL AST (0-40) U/L ALT (0-41) U/L Alkaline Phosphata se (40-130) IU/L Troponin T Baselin e (0-15) ng/L Troponin T 120 Min marilyn 9.13 (0-15) ng/L Delta Troponin T 1.13 (0-10) ABS# Total Protein (6.6-8.7) g/dL Albumin (3.5-5.2) g/dL Globulin (1.3-4.6) g/dL Salicylates (3-10) mg/dL Urine Opiates Scre en Negative (Negative) ng/mL Acetaminophen (10-30) ug/mL Ur Barbiturates Sc reen Negative (Negative) ng/mL Ur Phencyclidine S crn Negative (Negative) ng/mL Ur Amphetamines Sc reen Negative (Negative) ng/mL U Benzodiazepines Scrn Negative (Negative) ng/mL Urine Cocaine Scre en Negative (Negative) ng/mL U Marijuana (THC) Screen Negative (Negative) ng/mL Ethyl Alcohol (0-10) mg/dL EKG Data^: EKG 1: Attestation: I personally reviewed and interpreted this EKG as follows: EKG interpretation date: 12/25/20 EKG interpretation time: 21:34 Interpretation: nsr hr [address] or t wave abnormalities qrs 106 qtc 437 Discharge Plan Discharge Patient Disposition: Home Clinical Impression: Alcohol use Condition: Stable Prescriptions: New chlordiazepoxide HCl 10 mg capsule 10 mg PO Q8H PRN (Reason: withdrawal symptoms) Qty: 20 RF: 0 No Action aspirin 81 mg tablet,chewable 81 mg PO DAILY Qty: 30 RF: 0 Vitamin B-1 (mononitrate) 100 mg Tablet 100 mg PO DAILY 30 Days Qty: 30 RF: 1 trazodone 100 mg Tablet 200 mg PO BEDTIME 30 Days Qty: 60 RF: 1 Discharge Orders: Discharge ED (Routine); Ordered 12/25/20 Ordered By: Leigh Mckeon Discharge Diet: Advance as tolerated Discharge Activity: Resume usual activity Patient Instructions: Abuse of Alcohol (ED) Coding Level of Care Code ED Web Support Engineer for Jadeg Fwd Exam Comprehensive
[2020-12-25 22:50] VITALS: BP 166/92; PULSE 87; RESP 15; O2SAT 96
--- NOTE | 2020-12-30 15:35 | DCPLANNER ---
general road production manager had message to speak with patient about getting detox, manager of case management called phone number [phone], unable to speak with patient at this time. Patients phone is not taking calls at this time.
== END 2020-12-25 22:50 | disposition home or self-care (01) ==
PROVIDERS: Emergency Provider Emergency Medicine
DX: Z72.89 Other problems related to lifestyle (principal); Z79.82 Long term (current) use of aspirin
CPT/HCPCS: 36415; 80053; 80306; 80307; 84484; 85025; 93005; 96374; 99283; J2060

== ENCOUNTER 2021-02-05 15:02 | Emergency (ER) | payer OTHER, SELFPAY ==
[2021-02-05 15:47] VITALS: BP 165/107; PULSE 73; RESP 18; TEMP 36.8; O2SAT 93; BMI 29.7
--- NOTE | 2021-02-05 16:18 | ECG_ITS ---
[facility] Test Date: 2021-02-05 Pat Name: Deshaun Machuca Department: Room: Gender: Male Side Laster Tack: : 1970 Requested By: Yemi Martinez Order Number: [id number] Bermudez MD: Ave Abad M.D. Measurements Intervals [place] Rate: 71 P: 178 NE: 99 QRS: 134 QRSD: 178 T: 35 QT: 463 QTc: 506 Interpretive Statements SINUS RHYTHM MARKED RIGHT AXIS DEVIATION [QRS AXIS > 100] INTRAVENTRICULAR CONDUCTION DELAY [130+ ms QRS DURATION] Compared to ECG 12/25/2020 21:34:06 Right-axis deviation now present Intraventricular conduction delay now present Incomplete right bundle-branch block no longer present Myocardial infarct finding no longer present Electronically Signed On 02-07-2021 7:26:[address]ad M.D. [id number]
--- NOTE | 2021-02-05 16:19 | ED_ITS ---
Documented by User: Yemi Martinez MD 02/05/21 17:39 HPI - Alcohol General: Chief Complaint: Alcohol Stated Complaint: detoxing from alcohol Time Seen by Provider: 02/05/21 16:12 History of Present Illness: HPI narrative: This patient is a 50-year-old male who presents to the emergency department with complaint of depression and alcohol abuse. 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 Patient was sent to the emergency department for medical screening exam. Patient wishes to be placed in the facility to help with alcohol detox and treatment for depression. Patient also has a bad tooth on the right. Patient states previously they wanted to treat him with trazodone but does not help. So he just drinks to deal with his issues. We will do medical evaluation treat as needed complaint: alcohol intoxication, alcohol dependence, desires rehab and medical clearance for detox facility Associated symptoms: Reports depression; Deny abdominal pain, nausea, suicidal ideation or vomiting Review of Systems General: Reports: 10 or more systems reviewed and unremarkable except in HPI and below Const: Denies: fever(s), chills, body aches or fatigue Eyes: Denies: change in vision or blurry vision ENMT: Reports: dental pain; Denies: throat pain, hoarseness or mouth pain Card: Denies: chest pain, palpitations, irregular heart rhythm, edema, swelling of feet/ankles or lightheadedness Resp: Denies: dyspnea, productive cough, non-productive cough, wheezing or pain on inspiration GI: Denies: abdominal pain, nausea or vomiting : Denies: flank pain, dysuria, urinary frequency, urinary urgency or urinary hesitancy Musc: Denies: neck pain, back pain, extremity pain, extremity swelling, joint pain, joint swelling, joint redness, joint warmth or limited range of motion Skin/Breast: Denies: rash, pruritus, erythema or skin tenderness Neuro: Denies: headache(s), numbness in extremities or weakness in extremities Psych: Reports: depression; Denies: anxiety, suicidal ideation or homicidal ideation Physical Exam Const: COMMON NORMALS: no acute distress, average body habitus, patient oriented x3, no limitations, healthy appearing, alert and well nourished HENMT: COMMON NORMALS: normocephalic, atraumatic, hearing grossly normal bilaterally, external ears normal, EAC's normal, TM's normal bilaterally, Normal external nose present, Normal nasal mucous membranes and turbinates present, moist oral mucous membranes, oropharynx normal, dentition normal and gingiva normal HEAD & SCALP: normocephalic and atraumatic NOSE: Normal external nose present and Normal nasal mucous membranes and turbinates present EXTERNAL EAR: Yes external ears normal EXTERNAL AUDITORY CANAL: EAC's normal TYMPANIC MEMBRANE: TM's normal bilaterally TEETH & GINGIVA: Yes poor dentition Neck/C-Spine: COMMON NORMALS: full ROM, no lymphadenopathy, supple, no meningeal signs, no JVD, Thyroid normal and No carotid bruits THYROID: Thyroid normal Chest: COMMONS NORMALS: normal inspection of the chest, normal palpation of entire chest wall, normal inspection of the breasts and normal palpation of the breasts Breast/axilla inspection: Yes normal inspection of the breasts BREAST/AXILLA PALPATION: Yes normal palpation of the breasts Resp: COMMON NORMALS: normal respiratory effort, No retractions, No use of accessory muscles, clear to auscultation bilaterally and percussion normal AUSCULTATION: clear to auscultation bilaterally PERCUSSION: percussion normal Cardio: COMMON NORMALS: no JVD, regular rate, regular rhythm, S1 normal heart sound present, S2 normal heart sound present, No gallops present (Cardio), No clicks present (Cardio), No murmurs present (Cardio), No rub (Cardio) and Peripheral pulses 2+ throughout RATE: regular rate RHYTHM: regular rhythm HEART SOUNDS: S1 normal heart sound present and S2 normal heart sound present PERIPHERAL PULSES: Peripheral pulses 2+ throughout GI: COMMON NORMALS: Normal to inspection, nondistended, normoactive bowel sounds present, Soft to palpation, non-tender, No hepatosplenomegaly present, no masses and no bruits PALPATION: Yes Soft to palpation and Yes No hepatosplenomegaly present : COMMON NORMALS: Yes no CVA tenderness BLADDER/KIDNEY EXAM: Yes no CVA tenderness Back/Pelvis: COMMON NORMALS: no CVA tenderness, thoracic and lumbar spine normal to inspection, no thoracic nor lumbar tenderness, thoraco-lumbar ROM normal and straight leg raise negative bilaterally Extremity: COMMON NORMALS: normal to inspection, full ROM, capillary refill normal, no joint enlargement, no clubbing, cyanosis or edema, no calf tenderness and no pedal edema Neuro: COMMON NORMALS: patient oriented x3 SENSORIUM/ORIENTATION: Yes alert MENINGEAL SIGNS: Yes no meningeal signs Psych: COMMON NORMALS: mental status grossly normal, Normal thought process present and cooperative ATTITUDE: Yes calm ACTIVITY/MOTOR BEHAVIOR: Yes appropriate eye contact MOOD & AFFECT: Yes depressed mood and Yes tearful THOUGHT PROCESS: Normal thought process present OTHER: Patient smells of alcohol Course Vital Signs: Vital signs: Vital Signs Temperature 98.9 F 02/05/21 16:40 Pulse Rate 89 02/05/21 17:17 Respiratory Rate 15 02/05/21 17:17 Blood Pressure 152/88 02/05/21 17:17 Pulse Oximetry 98 02/05/21 17:17 MDM - Alcohol Medical Records: Attestation: I reviewed the patient's medical records. Lab Data: Attestation: I reviewed the patient's lab results. Labs: Lab Results 02/05/21 02/05/21 02/05/21 Range/Units 16:30 16:30 16:45 WBC 5.6 (4.0-10.0) 10^3/ uL RBC 5.36 H (4.1-5.3) 10^6/u L Hgb 16.6 (11.7-16.6) g/dL Hct 48.2 (42.0-52.0) % MCV 89.9 (80-94) fL MCH 31.0 (28.0-34.0) pg MCHC 34.4 (30.0-36.0) g/dL RDW 15.3 H (12.1-15.1) % Plt Count 135 (130-400) 10^3/c mm MPV 9.5 (7.4-10.4) fL Neut % (Auto) 65.4 % Lymph % (Auto) 19.4 % [place] % (Auto) 12.0 % Eos % (Auto) 1.6 % Baso % (Auto) 1.4 % Neut # (Auto) 3.65 (1.8-7.7) 10^3/u L Lymph # (Auto) 1.1 (0.8-4.8) 10^3/u L [place] # (Auto) 0.7 (0.2-0.9) 10^3/u L Eos # (Auto) 0.1 (0.0-0.8) 10^3/u L Baso # (Auto) 0.1 (0.0-0.1) 10^3/u L Nucleated RBC % (a uto) 0 % Nucleated RBCs # 0.0 /100WBC Sodium Cancelled Potassium Cancelled Chloride Cancelled Carbon Dioxide Cancelled Anion Gap Cancelled BUN Cancelled Creatinine Cancelled GFR Calculation Cancelled Glucose Cancelled Calculated Osmolal ity Cancelled Calcium Cancelled Total Bilirubin Cancelled AST Cancelled ALT Cancelled Alkaline Phosphata se Cancelled Total Protein Cancelled Albumin Cancelled Globulin Cancelled Urine Color Yellow (Yellow) Urine Appearance Clear (CLEAR) Urine pH 6.5 (5-7) Ur Specific Gravit y 1.010 (1.005-1.030) Urine Protein Neg (Negative) Urine Glucose (UA) Norm (Normal) Urine Ketones Negative (Negative) Urine Blood Neg (Negative) Urine Nitrate Negative (Negative) Urine Bilirubin Neg (Negative) Urine Urobilinogen Norm (Negative) mg/dL Ur Leukocyte Zahraa ase Negative (Negative) Salicylates Cancelled Urine Opiates Scre en (Negative) ng/mL Acetaminophen Cancelled Ur Barbiturates Sc reen (Negative) ng/mL Ur Phencyclidine S crn (Negative) ng/mL Ur Amphetamines Sc reen (Negative) ng/mL U Benzodiazepines Scrn (Negative) ng/mL Urine Cocaine Scre en (Negative) ng/mL U Marijuana (THC) Screen (Negative) ng/mL Ethyl Alcohol Cancelled 02/05/21 02/05/21 Range/Units 16:45 17:27 WBC (4.0-10.0) 10^3/ uL RBC (4.1-5.3) 10^6/u L Hgb (11.7-16.6) g/dL Hct (42.0-52.0) % MCV (80-94) fL MCH (28.0-34.0) pg MCHC (30.0-36.0) g/dL RDW (12.1-15.1) % Plt Count (130-400) 10^3/c mm MPV (7.4-10.4) fL Neut % (Auto) % Lymph % (Auto) % [place] % (Auto) % Eos % (Auto) % Baso % (Auto) % Neut # (Auto) (1.8-7.7) 10^3/u L Lymph # (Auto) (0.8-4.8) 10^3/u L [place] # (Auto) (0.2-0.9) 10^3/u L Eos # (Auto) (0.0-0.8) 10^3/u L Baso # (Auto) (0.0-0.1) 10^3/u L Nucleated RBC % (a uto) % Nucleated RBCs # /100WBC Sodium 142 Potassium 3.8 Chloride 101 Carbon Dioxide 26 Anion Gap 18.8 BUN 7 Creatinine 0.6 L GFR Calculation 142.0 H Glucose 86 Calculated Osmolal ity 291 Calcium 8.2 L Total Bilirubin 0.7 AST 197 H ALT 243 H Alkaline Phosphata se 140 H Total Protein 7.9 Albumin 4.4 Globulin 3.5 Urine Color (Yellow) Urine Appearance (CLEAR) Urine pH (5-7) Ur Specific Gravit y (1.005-1.030) Urine Protein (Negative) Urine Glucose (UA) (Normal) Urine Ketones (Negative) Urine Blood (Negative) Urine Nitrate (Negative) Urine Bilirubin (Negative) Urine Urobilinogen (Negative) mg/dL Ur Leukocyte Zahraa ase (Negative) Salicylates < 0.3 L Urine Opiates Scre en Negative (Negative) ng/mL Acetaminophen < 5.0 L Ur Barbiturates Sc reen Negative (Negative) ng/mL Ur Phencyclidine S crn Negative (Negative) ng/mL Ur Amphetamines Sc reen Negative (Negative) ng/mL U Benzodiazepines Scrn Negative (Negative) ng/mL Urine Cocaine Scre en Negative (Negative) ng/mL U Marijuana (THC) Screen Negative (Negative) ng/mL Ethyl Alcohol 290 H EKG Data^: EKG 1: Attestation: I personally reviewed and interpreted this EKG as follows: EKG interpretation date: 02/05/21 EKG interpretation time: 16:29 Prior EKG tracings: not available for review Interpretation: Sinus rhythm short MN interval right axis deviation. Interventricular conduction delay. Nonspecific abnormal EKG heart rate 71 Discharge Plan Discharge Patient Disposition: Home Clinical Impression: Alcohol use Condition: Stable Prescriptions: New chlordiazepoxide HCl 25 mg capsule 25 mg PO Q6H PRN (Reason: alcohol withdrawal) Qty: 20 RF: 0 No Action aspirin 81 mg tablet,chewable 81 mg PO DAILY Qty: 30 RF: 0 chlordiazepoxide HCl 10 mg capsule 10 mg PO Q8H PRN (Reason: withdrawal symptoms) Qty: 20 RF: 0 Vitamin B-1 (mononitrate) 100 mg Tablet 100 mg PO DAILY 30 Days Qty: 30 RF: 1 trazodone 100 mg Tablet 200 mg PO BEDTIME 30 Days Qty: 60 RF: 1 Discharge Orders: Discharge ED (Routine); Ordered 02/05/21 Ordered By: Leigh Mckeon Discharge Diet: Advance as tolerated Discharge Activity: Resume usual activity Patient Instructions: Abuse of Alcohol (ED) Coding Level of Care Code ED Applications Administrator for Chg Fwd Exam Comprehensive Documented by User: Leigh Mckeon MD 02/05/21 19:12 HPI - Alcohol General: Chief Complaint: Alcohol Stated Complaint: detoxing from alcohol Time Seen by Provider: 02/05/21 16:12 Course Vital Signs: Vital signs: Vital Signs Temperature 98.9 F 02/05/21 16:40 Pulse Rate 89 02/05/21 17:17 Respiratory Rate 15 02/05/21 17:17 Blood Pressure 152/88 02/05/21 17:17 Pulse Oximetry 98 02/05/21 17:17 MDM - Alcohol MDM Narrative: Medical decision making narrative: Patient presents here with alcohol intoxication. [facility] [place] [facility] We will place him on Librium and have case management try to get him in a detox facility. I informed him he should call [facility]. He is to return if worsening. I informed him do not drink with the Librium. Lab Data: Labs: Lab Results 02/05/21 02/05/21 02/05/21 Range/Units 16:30 16:30 16:45 WBC 5.6 (4.0-10.0) 10^3/ uL RBC 5.36 H (4.1-5.3) 10^6/u L Hgb 16.6 (11.7-16.6) g/dL Hct 48.2 (42.0-52.0) % MCV 89.9 (80-94) fL MCH 31.0 (28.0-34.0) pg MCHC 34.4 (30.0-36.0) g/dL RDW 15.3 H (12.1-15.1) % Plt Count 135 (130-400) 10^3/c mm MPV 9.5 (7.4-10.4) fL Neut % (Auto) 65.4 % Lymph % (Auto) 19.4 % [place] % (Auto) 12.0 % Eos % (Auto) 1.6 % Baso % (Auto) 1.4 % Neut # (Auto) 3.65 (1.8-7.7) 10^3/u L Lymph # (Auto) 1.1 (0.8-4.8) 10^3/u L [place] # (Auto) 0.7 (0.2-0.9) 10^3/u L Eos # (Auto) 0.1 (0.0-0.8) 10^3/u L Baso # (Auto) 0.1 (0.0-0.1) 10^3/u L Nucleated RBC % (a uto) 0 % Nucleated RBCs # 0.0 /100WBC Sodium Cancelled Potassium Cancelled Chloride Cancelled Carbon Dioxide Cancelled Anion Gap Cancelled BUN Cancelled Creatinine Cancelled GFR Calculation Cancelled Glucose Cancelled Calculated Osmolal ity Cancelled Calcium Cancelled Total Bilirubin Cancelled AST Cancelled ALT Cancelled Alkaline Phosphata se Cancelled Total Protein Cancelled Albumin Cancelled Globulin Cancelled Urine Color Yellow (Yellow) Urine Appearance Clear (CLEAR) Urine pH 6.5 (5-7) Ur Specific Gravit y 1.010 (1.005-1.030) Urine Protein Neg (Negative) Urine Glucose (UA) Norm (Normal) Urine Ketones Negative (Negative) Urine Blood Neg (Negative) Urine Nitrate Negative (Negative) Urine Bilirubin Neg (Negative) Urine Urobilinogen Norm (Negative) mg/dL Ur Leukocyte Zahraa ase Negative (Negative) Salicylates Cancelled Urine Opiates Scre en (Negative) ng/mL Acetaminophen Cancelled Ur Barbiturates Sc reen (Negative) ng/mL Ur Phencyclidine S crn (Negative) ng/mL Ur Amphetamines Sc reen (Negative) ng/mL U Benzodiazepines Scrn (Negative) ng/mL Urine Cocaine Scre en (Negative) ng/mL U Marijuana (THC) Screen (Negative) ng/mL Ethyl Alcohol Cancelled 02/05/21 02/05/21 Range/Units 16:45 17:27 WBC (4.0-10.0) 10^3/ uL RBC (4.1-5.3) 10^6/u L Hgb (11.7-16.6) g/dL Hct (42.0-52.0) % MCV (80-94) fL MCH (28.0-34.0) pg MCHC (30.0-36.0) g/dL RDW (12.1-15.1) % Plt Count (130-400) 10^3/c mm MPV (7.4-10.4) fL Neut % (Auto) % Lymph % (Auto) % [place] % (Auto) % Eos % (Auto) % Baso % (Auto) % Neut # (Auto) (1.8-7.7) 10^3/u L Lymph # (Auto) (0.8-4.8) 10^3/u L [place] # (Auto) (0.2-0.9) 10^3/u L Eos # (Auto) (0.0-0.8) 10^3/u L Baso # (Auto) (0.0-0.1) 10^3/u L Nucleated RBC % (a uto) % Nucleated RBCs # /100WBC Sodium 142 Potassium 3.8 Chloride 101 Carbon Dioxide 26 Anion Gap 18.8 BUN 7 Creatinine 0.6 L GFR Calculation 142.0 H Glucose 86 Calculated Osmolal ity 291 Calcium 8.2 L Total Bilirubin 0.7 AST 197 H ALT 243 H Alkaline Phosphata se 140 H Total Protein 7.9 Albumin 4.4 Globulin 3.5 Urine Color (Yellow) Urine Appearance (CLEAR) Urine pH (5-7) Ur Specific Gravit y (1.005-1.030) Urine Protein (Negative) Urine Glucose (UA) (Normal) Urine Ketones (Negative) Urine Blood (Negative) Urine Nitrate (Negative) Urine Bilirubin (Negative) Urine Urobilinogen (Negative) mg/dL Ur Leukocyte Zahraa ase (Negative) Salicylates < 0.3 L Urine Opiates Scre en Negative (Negative) ng/mL Acetaminophen < 5.0 L Ur Barbiturates Sc reen Negative (Negative) ng/mL Ur Phencyclidine S crn Negative (Negative) ng/mL Ur Amphetamines Sc reen Negative (Negative) ng/mL U Benzodiazepines Scrn Negative (Negative) ng/mL Urine Cocaine Scre en Negative (Negative) ng/mL U Marijuana (THC) Screen Negative (Negative) ng/mL Ethyl Alcohol 290 H Discharge Plan Discharge Patient Disposition: Home Clinical Impression: Alcohol use Condition: Stable Prescriptions: New chlordiazepoxide HCl 25 mg capsule 25 mg PO Q6H PRN (Reason: alcohol withdrawal) Qty: 20 RF: 0 No Action aspirin 81 mg tablet,chewable 81 mg PO DAILY Qty: 30 RF: 0 chlordiazepoxide HCl 10 mg capsule 10 mg PO Q8H PRN (Reason: withdrawal symptoms) Qty: 20 RF: 0 Vitamin B-1 (mononitrate) 100 mg Tablet 100 mg PO DAILY 30 Days Qty: 30 RF: 1 trazodone 100 mg Tablet 200 mg PO BEDTIME 30 Days Qty: 60 RF: 1 Discharge Orders: Discharge ED (Routine); Ordered 02/05/21 Ordered By: Leigh Mckeon Discharge Diet: Advance as tolerated Discharge Activity: Resume usual activity Patient Instructions: Abuse of Alcohol (ED) Coding Level of Care Code ED Applications Administrator for Jhoana Fwspencer Exam Comprehensive
[2021-02-05 16:40] VITALS: BP 162/99; PULSE 74; RESP 18; TEMP 37.2; O2SAT 93
[2021-02-05 16:45] LABS: Basophils # 0.1 10^3/uL (0.0-0.1); Basophils % 1.4 %; Eosinophils # 0.1 10^3/uL (0.0-0.8); Eosinophils % 1.6 %; Hematocrit 48.2 % (42.0-52.0); Hemoglobin 16.6 g/dL (11.7-16.6); Lymphocytes # 1.1 10^3/uL (0.8-4.8); Lymphocytes % 19.4 %; Mean Corpuscular HGB Conc 34.4 g/dL (30.0-36.0); Mean Corpuscular Volume 89.9 fL (80-94); Mean Platelet Volume 9.5 fL (7.4-10.4); Monocytes # 0.7 10^3/uL (0.2-0.9); Neutrophils # 3.65 10^3/uL (1.8-7.7); Neutrophils % 65.4 %; Nucleated Red Blood Cells % 0 %; Platelet Count 135 10^3/cmm (130-400); Red Blood Count 5.36 10^6/uL (4.1-5.3); Red Cell Distribution Width 15.3 % (12.1-15.1); White Blood Count 5.6 10^3/uL (4.0-10.0)
[2021-02-05 16:53] LABS: Add Urine Microscopic? NO; Charge for UA Resulting for Rev
[2021-02-05] MEDS: folic acid 1 MG, multivitamin inj 10 ML, thiamine 100 MG in sodium chloride 0.9% 1,000 ML 252.8 MG IV (16:55)
[2021-02-05 16:56] LABS: Bilirubin Urine Neg (Negative); Blood Urine Neg (Negative); Glucose Urine UA Norm (Normal); Ketones Urine Negative (Negative); Leukocyte Esterase Urine Negative (Negative); Nitrate Urine Negative (Negative); Protein Urine Neg (Negative); Urine Appearance Clear (CLEAR); Urine Color Yellow (Yellow); Urobilinogen Urine Norm (Negative); pH Urine 6.5 (5-7)
[2021-02-05 17:04] LABS: Amphetamines Screen Urine Negative (Negative); Barbiturates Screen Urine Negative (Negative); Benzodiazepines Screen Urine Negative (Negative); Cocaine Screen Urine Negative (Negative); Opiate Screen Urine Negative (Negative); PCP Screen Urine Negative (Negative); THC Screen Urine Negative (Negative)
[2021-02-05 17:17] VITALS: BP 152/88; PULSE 89; RESP 15; O2SAT 98
[2021-02-05 18:09] LABS: Alanine Aminotransferase 243 U/L (0-41); Albumin Level 4.4 g/dL (3.5-5.2); Alcohol Level 290 mg/dL (0-10); Alkaline Phosphatase 140 IU/L (40-130); Anion Gap 18.8 (5-19); Aspartate Amino Transferase 197 U/L (0-40); Blood Urea Nitrogen 7 mg/dL (6-20); Calcium 8.2 mg/dL (8.5-10.5); Carbon Dioxide 26 mmol/L (22-29); Chloride 101 mmol/L (98-107); Globulin 3.5 g/dL (1.3-4.6); Glucose 86 mg/dL (65-115); Osmolality Calculated 291 mOsm/kg (285-295); Potassium 3.8 mmol/L (3.5-5.1); Sodium 142 mmol/L (136-145); Total Bilirubin 0.7 mg/dL (0.15-1.2); Total Protein 7.9 g/dL (6.6-8.7)
[2021-02-05 18:10] LABS: Acetaminophen < 5.0 ug/mL (10-30); Salicylate < 0.3 mg/dL (3-10)
[2021-02-05 19:05] VITALS: BP 151/96; PULSE 77; RESP 17; TEMP 36.9; O2SAT 96
--- NOTE | 2021-02-06 13:21 | DCPLANNER ---
manager of corporate had message to speak with patient about alcohol rehab. manager of corporate called phone number [phone], unable to speak with patient, and unable to leave a voicemail for patient.
== END 2021-02-05 19:10 | disposition home or self-care (01) ==
PROVIDERS: Emergency Medicine; Emergency Provider Emergency Medicine
DX: F10.929 Alcohol use, unspecified with intoxication, unspecified (principal); Y90.8 Blood alcohol level of 240 mg/100 ml or more; Z79.82 Long term (current) use of aspirin; Z79.899 Other long term (current) drug therapy
CPT/HCPCS: 36415; 80053; 80306; 80307; 81003; 85025; 93005; 96360; 96361; 99284; J3411; J3490; J7030

== ENCOUNTER 2022-12-17 18:51 | Emergency (ER) | payer OTHER, SELFPAY ==
[2022-12-17 18:59] VITALS: BP 138/91; PULSE 77; RESP 22; TEMP 36.8; O2SAT 99; BMI 23.7
--- NOTE | 2022-12-17 19:19 | ECG_ITS ---
[facility] Test Date: 2022-12-17 Pat Name: Deshaun Machuca Department: Room: Gender: Male Rn Liaison: : 1970 Requested By: El Frey Order Number: [id number] Lara MD: Steve Ordonez M.D. Measurements Intervals [place] Rate: 73 P: 23 NV: 181 QRS: 76 QRSD: 97 T: 72 QT: 437 QTc: 482 Interpretive Statements SINUS RHYTHM LOW QRS VOLTAGE IN EXTREMITY LEADS [QRS DEFLECTION < 0.5 mV IN LIMB LEADS] PROLONGED QT INTERVAL Compared to ECG 02/05/2021 16:29:37 Low QRS voltage now present Prolonged QT interval now present Right-axis deviation no longer present Intraventricular conduction delay no longer present Electronically Signed On 12-17-2022 23:02:51 CDT by Steve Ordonez M.D. [id number]
--- NOTE | 2022-12-17 19:28 | W.ED.PSYCHS ---
HPI - Psych General: Chief Complaint: Psychiatric Symptoms Stated Complaint: MHE Time Seen by Provider: 12/17/22 19:00 History of Present Illness: 52-year-old male presents the emergency department chief complaint of having increased depression as well as issues with dealing with his mother's . Patient drinking on disclose more alcohol today patient does have a history of alcohol issues. It was suggested by his for him to come to the ER for further assessment and management patient denies any homicidal suicidal thoughts or ideations. Associated symptoms: Deny depression Review of Systems General: Reports: 10 or more systems reviewed and unremarkable except in HPI and below Const: Denies: fever(s), chills, fatigue or malaise Eyes: Denies: change in vision or blurry vision Card: Denies: chest pain or palpitations Resp: Denies: dyspnea or productive cough GI: Denies: abdominal pain, nausea or vomiting : Denies: flank pain Musc: Denies: extremity pain or extremity swelling Skin/Breast: Denies: rash or pruritus Neuro: Denies: headache(s) Psych: Denies: anxiety or depression Oscar/Lymph: Denies: easy bleeding All/Imm: Denies: urticaria, throat swelling or facial swelling Physical Exam Narrative: EXAM NARRATIVE: Smell of alcohol breath patient however demonstrates clinical sobriety and clear speech and steady gait patient upon direct questioning reports no suicidal or homicidal thoughts or ideations Const: COMMON NORMALS: no acute distress, patient oriented x3 and healthy appearing HENMT: COMMON NORMALS: normocephalic and atraumatic HEAD & SCALP: normocephalic and atraumatic Eye: COMMON NORMALS: Equal, round and reactive pupils present and EOMs intact bilaterally PUPIL: Yes Equal, round and reactive pupils present Neck/C-Spine: COMMON NORMALS: full ROM, supple and no JVD Lymph: LYMPHATIC: no lymphadenopathy noted Chest: COMMONS NORMALS: normal inspection of the chest and normal palpation of entire chest wall Resp: COMMON NORMALS: normal respiratory effort, No retractions and clear to auscultation bilaterally EFFORT & INSPECTION: Yes able to speak in complete sentences and Yes symmetric chest movement AUSCULTATION: clear to auscultation bilaterally Cardio: COMMON NORMALS: no JVD, regular rate and regular rhythm RATE: regular rate RHYTHM: regular rhythm GI: COMMON NORMALS: Normal to inspection, nondistended, normoactive bowel sounds present, Soft to palpation and non-tender INSPECTION: Yes normal to inspection PALPATION: Yes Soft to palpation : COMMON NORMALS: Yes no CVA tenderness BLADDER/KIDNEY EXAM: Yes no CVA tenderness Back/Pelvis: COMMON NORMALS: no CVA tenderness Extremity: COMMON NORMALS: normal to inspection and full ROM Neuro: COMMON NORMALS: patient oriented x3, CN's II-XII intact bilaterally, moves all extremities and no focal motor deficits Psych: COMMON NORMALS: mental status grossly normal, Normal thought process present, cooperative and normal affect THOUGHT PROCESS: Normal thought process present Skin: COMMON NORMALS: no rashes or lesions noted GENERAL SKIN EXAM: no rashes or lesions noted Course Vital Signs: Vital signs: Vital Signs Temperature 98.2 F 12/17/22 18:59 Pulse Rate 77 12/17/22 18:59 Respiratory Rate 22 H 12/17/22 18:59 Blood Pressure 138/91 12/17/22 18:59 Pulse Oximetry 99 12/17/22 18:59 Oxygen Delivery Me thod Room Air 12/17/22 18:59 MDM - Psych Medical Decision Making Due to the patient's symptom condition basic lab work and imaging will be obtained as well came back unremarkable patient was requesting to go home he is demonstrating clinical sobriety of clear speech and steady gait in which he wants to contacted him over to go home due to patient demonstrating clinical sobriety patient be subsequent discharged home per his wishes upon further investigation as patient again is homicidal or suicidal he reported he has not patient is stable for discharge home at this time advising further follow-up with primary care doctor in 2 to 3 days as needed which advised her to return the interim if any of his symptoms persist or worse Lab Data 12/17/22 19:35 12/17/22 19:35 Laboratory Results WBC 4.6 10^3/uL (4.0-10.0) 12/17/22 19:35 RBC 4.43 10^6/uL (4.1-5.3) 12/17/22 19:35 Hgb 14.1 g/dL (11.7-16.6) 12/17/22 19:35 Hct 42.3 % (42.0-52.0) 12/17/22 19:35 MCV 95.5 fl (80-94) H 12/17/22 19:35 MCH 31.8 pg (28.0-34.0) 12/17/22 19:35 MCHC 33.3 g/dL (30.0-36.0) 12/17/22 19:35 RDW 13.9 % (12.1-15.1) 12/17/22 19:35 Plt Count 106 10^3/cmm (130-400) L 12/17/22 19:35 MPV 9.2 fL (7.4-10.4) 12/17/22 19:35 Neut % (Auto) 38.8 % 12/17/22 19:35 Lymph % (Auto) 44.1 % 12/17/22 19:35 [place] % (Auto) 9.1 % 12/17/22 19:35 Eos % (Auto) 6.5 % 12/17/22 19:35 Baso % (Auto) 1.3 % 12/17/22 19:35 Neut # (Auto) 1.80 10^3/uL (1.8-7.7) 12/17/22 19:35 Lymph # (Auto) 2.0 10^3/uL (0.8-4.8) 12/17/22 19:35 [place] # (Auto) 0.4 10^3/uL (0.2-0.9) 12/17/22 19:35 Eos # (Auto) 0.3 10^3/uL (0.0-0.8) 12/17/22 19:35 Baso # (Auto) 0.1 10^3/uL (0.0-0.1) 12/17/22 19:35 Nucleated RBC % (auto) 0 % 12/17/22 19:35 Nucleated RBCs # 0.0 /100WBC 12/17/22 19:35 Sodium 144 mmol/L (136-145) 12/17/22 19:35 Potassium 3.6 mmol/L (3.5-5.1) 12/17/22 19:35 Chloride 103 mmol/L (98-107) 12/17/22 19:35 Carbon Dioxide 24 mmol/L (22-29) 12/17/22 19:35 Anion Gap 20.6 (5-19) H 12/17/22 19:35 BUN 4 mg/dL (6-20) L 12/17/22 19:35 Creatinine 0.5 mg/dL (0.7-1.2) L 12/17/22 19:35 GFR Calculation 173.9 mL/min (90-130) H 12/17/22 19:35 Glucose 87 mg/dL (65-115) 12/17/22 19:35 Calculated Osmolality 294 mOsm/kg (285-295) 12/17/22 19:35 Calcium 7.9 mg/dL (8.5-10.5) L 12/17/22 19:35 Total Bilirubin 0.6 mg/dL (0.15-1.2) 12/17/22 19:35 AST 63 U/L (0-40) H 12/17/22 19:35 ALT 34 U/L (0-41) 12/17/22 19:35 Alkaline Phosphatase 110 U/L (40-130) 12/17/22 19:35 Total Protein 7.4 g/dL (6.6-8.7) 12/17/22 19:35 Albumin 3.8 g/dL (3.5-5.2) 12/17/22 19:35 Globulin 3.6 g/dL (1.3-4.6) 12/17/22 19:35 Urine Color [place] (Yellow) 12/17/22 19:12 Urine Appearance Sl hazy (CLEAR) A 12/17/22 19:12 Urine pH 7 (5-7) 12/17/22 19:12 Ur Specific [place] 1.010 (1.005-1.030) 12/17/22 19:12 Urine Protein Neg (Negative) 12/17/22 19:12 Urine Glucose (UA) Norm (Normal) 12/17/22 19:12 Urine Ketones 1+ (Negative) H 12/17/22 19:12 Urine Blood Neg (Negative) 12/17/22 19:12 Urine Nitrate Negative (Negative) 12/17/22 19:12 Urine Bilirubin Neg (Negative) 12/17/22 19:12 Urine Urobilinogen 4 mg/dL (Negative) H 12/17/22 19:12 Ur Leukocyte Esterase Negative (Negative) 12/17/22 19:12 Salicylates < 0.3 mg/dL (3-10) L 12/17/22 19:35 Urine Opiates Screen Negative ng/mL (Negative) 12/17/22 19:12 Acetaminophen < 5.0 ug/mL (10-30) L 12/17/22 19:35 Ur Barbiturates Screen Negative ng/mL (Negative) 12/17/22 19:12 Ur Phencyclidine Scrn Negative ng/mL (Negative) 12/17/22 19:12 Ur Amphetamines Screen Negative ng/mL (Negative) 12/17/22 19:12 U Benzodiazepines Scrn Positive ng/mL (Negative) H 12/17/22 19:12 Urine Cocaine Screen Negative ng/mL (Negative) 12/17/22 19:12 U Marijuana (THC) Screen Negative ng/mL (Negative) 12/17/22 19:12 Ethyl Alcohol 347 mg/dL (0-10) H* 12/17/22 19:35 Discharge Plan Discharge Patient Disposition: Home Clinical Impression: Alcohol use, Depression Condition: Stable Prescriptions: No Action aspirin 81 mg tablet,chewable 81 mg PO DAILY Qty: 30 0RF chlordiazepoxide HCl 10 mg capsule 10 mg PO Q8H PRN (Reason: withdrawal symptoms) Qty: 20 0RF chlordiazepoxide HCl 25 mg capsule 25 mg PO Q6H PRN (Reason: alcohol withdrawal) Qty: 20 0RF Vitamin B-1 (mononitrate) 100 mg Tablet 100 mg PO DAILY 30 Days Qty: 30 1RF trazodone 100 mg Tablet 200 mg PO BEDTIME 30 Days Qty: 60 1RF Discharge Orders: Discharge ED (Routine); Ordered 12/17/22 Ordered By: El Frey Discharge Diet: Advance as tolerated Discharge Activity: Increase activity as tolerated Patient Instructions: Depression, Abuse of Alcohol (DC) Activity Restrictions/Additional Instructions: It is advised you to further follow-up your primary care doctor for further assessment management of your substance use issues as well as depression. Please contact your primary care doctor on Tuesday for further assessment please return the interim if any of your symptoms persist or worse. Coding Level of Care Code ED Manufacturing Process Technician for Jhoana Buckley
[2022-12-17 19:30] LABS: Add Urine Microscopic? NO; Charge for UA Resulting for Rev
[2022-12-17] MEDS: sodium chloride 0.9% 1,000 ML 999 ML IV (19:33)
[2022-12-17 19:37] LABS: Bilirubin Urine Neg (Negative); Blood Urine Neg (Negative); Glucose Urine UA Norm (Normal); Ketones Urine 1+ (Negative); Leukocyte Esterase Urine Negative (Negative); Nitrate Urine Negative (Negative); Protein Urine Neg (Negative); Urine Appearance SL Hazy (CLEAR); Urine Color Orange (Yellow); Urobilinogen Urine 4 mg/dL (Negative); pH Urine 7 (5-7)
[2022-12-17 19:46] LABS: Amphetamines Screen Urine Negative (Negative); Barbiturates Screen Urine Negative (Negative); Benzodiazepines Screen Urine Positive (Negative); Cocaine Screen Urine Negative (Negative); Opiate Screen Urine Negative (Negative); PCP Screen Urine Negative (Negative); THC Screen Urine Negative (Negative)
[2022-12-17 20:00] LABS: Basophils # 0.1 10^3/uL (0.0-0.1); Basophils % 1.3 %; Eosinophils # 0.3 10^3/uL (0.0-0.8); Eosinophils % 6.5 %; Hematocrit 42.3 % (42.0-52.0); Hemoglobin 14.1 g/dL (11.7-16.6); Lymphocytes % 44.1 %; Mean Corpuscular HGB Conc 33.3 g/dL (30.0-36.0); Mean Corpuscular Hemoglobin 31.8 pg (28.0-34.0); Mean Corpuscular Volume 95.5 fl (80-94); Mean Platelet Volume 9.2 fL (7.4-10.4); Monocytes # 0.4 10^3/uL (0.2-0.9); Monocytes % 9.1 %; Neutrophils % 38.8 %; Nucleated Red Blood Cells % 0 %; Platelet Count 106 10^3/cmm (130-400); Red Blood Count 4.43 10^6/uL (4.1-5.3); Red Cell Distribution Width 13.9 % (12.1-15.1); White Blood Count 4.6 10^3/uL (4.0-10.0)
[2022-12-17 20:17] LABS: Alanine Aminotransferase 34 U/L (0-41); Albumin Level 3.8 g/dL (3.5-5.2); Alkaline Phosphatase 110 U/L (40-130); Anion Gap 20.6 (5-19); Aspartate Amino Transferase 63 U/L (0-40); Blood Urea Nitrogen 4 mg/dL (6-20); Calcium 7.9 mg/dL (8.5-10.5); Carbon Dioxide 24 mmol/L (22-29); Chloride 103 mmol/L (98-107); Globulin 3.6 g/dL (1.3-4.6); Glomerular Filtration Rate 173.9 mL/min (90-130); Glucose 87 mg/dL (65-115); Osmolality Calculated 294 mOsm/kg (285-295); Potassium 3.6 mmol/L (3.5-5.1); Sodium 144 mmol/L (136-145); Total Bilirubin 0.6 mg/dL (0.15-1.2); Total Protein 7.4 g/dL (6.6-8.7)
[2022-12-17 20:19] LABS: Acetaminophen < 5.0 ug/mL (10-30); Salicylate < 0.3 mg/dL (3-10)
[2022-12-17 20:20] LABS: Alcohol Level 347 mg/dL (0-10)
[2022-12-17] MEDS: nicotine 21 mg Patch 1 PATCH TRANSDERMA (20:28)
[2022-12-17 22:04] VITALS: BP 138/91; PULSE 77; RESP 22; TEMP 36.8; O2SAT 99
--- NOTE | 2022-12-22 15:44 | DCPLANNER ---
manager of business operations called patient due to no primary care provider - no answer at this time.
== END 2022-12-17 22:05 | disposition home or self-care (01) ==
PROVIDERS: Emergency Provider Emergency Medicine
DX: F32.A Depression, unspecified (principal); F10.90 Alcohol use, unspecified, uncomplicated; Z79.82 Long term (current) use of aspirin
CPT/HCPCS: 80053; 80306; 80307; 81003; 85025; 93005; 99284; J7030